=== PATIENT | male | born 1980 | race Hispanic/Latino ===

== ENCOUNTER 2019-06-21 09:58 | Emergency (ER) | payer MEDICAID ==
[2019-06-21 10:38] LABS: BASOPHILS % (AUTO) 0.9 % (0.0-5.0); HEMATOCRIT 45.6 % (42-54); LYMPHOCYTES % (AUTO) 21.9 % (21.0-51.0); MEAN CORPUSCULAR HEMOGLOBIN 31.1 pg (27.0-33.0); MEAN CORPUSCULAR HGB CONC 34.6 g/dL (32.0-36.0); MEAN CORPUSCULAR VOLUME 89.8 fL (79-99); MONOCYTES % (AUTO) 6.6 % (3.0-13.0); NEUTROPHILS % (AUTO) 68.6 % (40.0-77.0); PLATELET COUNT (AUTO) 258 K/uL (130-400); RED BLOOD CELL COUNT(AUTO) 5.07 MIL/uL (4.50-6.20); RED CELL DISTRIBUTION WIDTH 13.1 % (11.0-15.5); WHITE BLOOD COUNT (AUTO) 6.7 K/uL (4.8-10.8)
[2019-06-21 10:44] LABS: POTASSIUM 4.1 mmol/L (3.5-5.1)
[2019-06-21 10:49] LABS: ALBUMIN 4.3 g/dL (3.5-5.0); BILIRUBIN,TOTAL 0.6 mg/dL (0.2-1.0); TOTAL PROTEIN, SERUM 7.4 g/dL (6.0-8.3)
[2019-06-21] MEDS ORDERED: KETOROLAC TROMETHAMINE 30MG/ML ONE (12:54)
[2019-06-21] MEDS ORDERED: SODIUM CHLORIDE 0.9% 500ML 500 ML IV ONE (12:55)
== END 2019-06-21 15:09 | disposition home or self-care (01) ==
LOC: EDH 09:58
DX: R09.1 Pleurisy (principal); R07.89 Other chest pain; Z72.0 Tobacco use
CPT/HCPCS: 36415; 71045; 80053; 82550; 83690; 84484 ×2; 85025; 85378; 93005 ×2; 96374; 99285; J1885; J7040

== ENCOUNTER 2021-05-13 15:04 | Emergency (ER) | payer MEDICAID ==
[~2021-05-13] VITALS: Ht 165.1 cm; Wt 77.1 kg
[~2021-05-13 15:04] MED LIST: DILT180C89 PO
[2021-05-13 15:06] VITALS: BP 110/69
[2021-05-13 15:25] LABS: EOSINOPHILS % (AUTO) 1.5 % (0.0-8.0); LYMPHOCYTES % (AUTO) 17.3 % (21.0-51.0); MEAN CORPUSCULAR HEMOGLOBIN 31.2 pg (27.0-33.0); MEAN CORPUSCULAR HGB CONC 34.5 g/dL (32.0-36.0); MEAN CORPUSCULAR VOLUME 90.4 fL (79-99); MONOCYTES % (AUTO) 7.9 % (3.0-13.0); NEUTROPHILS % (AUTO) 71.7 % (40.0-77.0); PLATELET COUNT (AUTO) 350 K/uL (130-400); RED BLOOD CELL COUNT(AUTO) 5.86 MIL/uL (4.50-6.20); RED CELL DISTRIBUTION WIDTH 12.1 % (11.0-15.5); WHITE BLOOD COUNT (AUTO) 10.8 K/uL (4.8-10.8)
[2021-05-13 15:37] LABS: CREATININE 1.5 mg/dL (0.5-1.5); POTASSIUM 3.6 mmol/L (3.5-5.1)
[2021-05-13 15:43] LABS: ALBUMIN 4.9 g/dL (3.5-5.0); BILIRUBIN,TOTAL 0.7 mg/dL (0.2-1.0)
[2021-05-13 16:35] VITALS: BP 125/79
[2021-05-13 16:40] VITALS: BP 128/89
[2021-05-13 16:45] VITALS: BP 115/77
[2021-05-13] MEDS ORDERED: ACETAMINOPHEN 500 MG TABLET PO ONE (17:00)
[2021-05-13] MEDS ORDERED: NACL 0.9% 1000ML 1,000 ML IV ONE ×3 (17:00→18:25)
[2021-05-13 17:08] LABS: APPEARANCE,URINE Cloudy (CLEAR); BILIRUBIN,URINE Small (NEGATIVE); COLOR,URINE Dark Yellow (YELLOW); GLUCOSE, URINE (UA) Negative (NEGATIVE); KETONES,URINE 15 mg/dL (NEGATIVE); LEUKOCYTE ESTERASE ,URINE Negative (NEGATIVE); NITRATE,URINE Negative (NEGATIVE); OCCULT BLOOD,URINE Negative (NEGATIVE); PROTEIN,URINE POS 1+ mg/dL (NEGATIVE)
[2021-05-13 17:51] LABS: BACTERIA,URINE Few /HPF (None Seen); MUCUS,URINE Many LPF (None Seen); SPERM,URINE Few /HPF (None Seen); SQUAMOUS EPITHELIAL CELL,UR Few /HPF (0-2)
[2021-05-13 19:25] VITALS: BP 128/82
== END 2021-05-13 19:15 | disposition home or self-care (01) ==
LOC: EDH 15:04
DX: T67.5XXA Heat exhaustion, unspecified, initial encounter (principal); R42 Dizziness and giddiness; X58.XXXA Exposure to other specified factors, initial encounter; Y93.89 Activity, other specified; Y92.89 Other specified places as the place of occurrence of the external cause; Y99.8 Other external cause status
CPT/HCPCS: 36415; 80053; 81001; 85025; 96360; 99283; J7030

== ENCOUNTER 2023-02-07 08:54 | Emergency (ER) | payer MEDICAID ==
[~2023-02-07] VITALS: Ht 165.1 cm; Wt 79.4 kg
[2023-02-07 08:59] VITALS: BP 131/90
[2023-02-07] MEDS ORDERED: CYCL10TA16 PO (09:52)
[2023-02-07] MEDS ORDERED: NAPR500T6 PO (09:52)
[2023-02-07] MEDS ORDERED: KETOROLAC 30MG VIAL (30MG/ML) ONE (09:57)
[2023-02-07] MEDS ORDERED: DIAZEPAM 5 MG TABLET ONE (09:58)
[2023-02-07] MEDS ORDERED: KETOROLAC 30MG VIAL (30MG/ML) IM ONE (10:00)
[2023-02-07] MEDS ORDERED: DIAZEPAM 5 MG TABLET PO ONE (10:00)
== END 2023-02-07 10:37 | disposition home or self-care (01) ==
LOC: EDH 08:54
DX: S39.012A Strain of muscle, fascia and tendon of lower back, initial encounter (principal); Z79.899 Other long term (current) drug therapy; X58.XXXA Exposure to other specified factors, initial encounter; Y93.89 Activity, other specified; Y92.89 Other specified places as the place of occurrence of the external cause; Y99.8 Other external cause status
CPT/HCPCS: 99283; 96372; J1885

== ENCOUNTER 2023-09-10 12:57 | Observation (INO) | payer MEDICAID ==
[~2023-09-10] VITALS: Ht 165.1 cm; Wt 99.8 kg
[2023-09-10] VITALS (23 sets, daily range): BP systolic 103–131; BP diastolic 59–84; PULSE 77–97; RESP 16–17; O2SAT 97
[~2023-09-10 12:57] MED LIST changes: +CYCL10TA16 PO; +NAPR500T6 PO
[2023-09-10 16:11] LABS: MEAN CORPUSCULAR HEMOGLOBIN 30.7 pg (27.0-33.0); MEAN CORPUSCULAR HGB CONC 34.3 g/dL (32.0-36.0); MEAN CORPUSCULAR VOLUME 89.5 fL (79-99); PLATELET COUNT (AUTO) 312 K/uL (130-400); RED BLOOD CELL COUNT(AUTO) 5.14 MIL/uL (4.50-6.20); RED CELL DISTRIBUTION WIDTH 11.9 % (11.0-15.5); WHITE BLOOD COUNT (AUTO) 10.8 K/uL (4.8-10.8)
[2023-09-10] MEDS ORDERED: PROPOFOL 10 MG/ML 20ML VIAL IV ONE ×2 (16:21→17:35)
[2023-09-10] MEDS ORDERED: MIDAZOLAM HCL 1 MG/ML 2ML VIAL ONE (16:21)
[2023-09-10 16:22] LABS: INR < 0.93 (0.85-1.15); PROTHROMBIN TIME 10.6 SEC (9.6-11.6)
[2023-09-10] MEDS ORDERED: FENTANYL CITRATE PF 50 MCG/1 ML 2ML VIAL ONE ×3 (16:22→17:31)
[2023-09-10 16:26] LABS: ALBUMIN 4.3 g/dL (3.5-5.0); BILIRUBIN,TOTAL 0.5 mg/dL (0.2-1.0); TOTAL PROTEIN, SERUM 7.6 g/dL (6.0-8.3)
[2023-09-10 16:28] LABS: BAND NEUTROPHILS % (MANUAL) 1 % (0-2); EOSINOPHILS % (MANUAL) 1 % (1-6); LYMPHOCYTES % (MANUAL) 19 % (22-44); MAN.DIFF COMMENT-IMPRESSION MANUAL DIFFERENTIAL; MONOCYTES % (MANUAL) 9 % (2-9); PLATELET MORPHOLOGY COMMENT ADEQUATE; SEGMENTED NEUTROPHILS % 70 % (40-70); TOTAL CELLS COUNTED 100; WBC MORPHOLOGY CONSISTENT W/DIFF
[2023-09-10] MEDS ORDERED: SUCCINYLCHOLINE 200MG/10ML SYR ONE (16:33)
[2023-09-10] MEDS ORDERED: ROCURONIUM 10MG/1ML SYR 10 MG/ML ML ONE ×2 (16:33→17:00)
[2023-09-10] MEDS ORDERED: ONDANSETRON 4MG INJ ONE (16:52)
[2023-09-10] MEDS: 0.9%NACL 1000ML 1,000 ML IV SCH (17:00)
[2023-09-10] MEDS ORDERED: DIPH,PERTUSS(ACELL),TET VAC/PF 0.5 ML VIAL IM ONE (17:00)
[2023-09-10] MEDS ORDERED: CEFAZOLIN SODIUM 2 GM VIAL IVPB SCH (17:00)
[2023-09-10] MEDS ORDERED: VANCOMYCIN 1G VIAL IVPB ONE (17:15)
[2023-09-10] MEDS ORDERED: VANCOMYCIN 1G/250ML KIT 250 ML IV ONE (17:23)
[2023-09-10] MEDS ORDERED: DEXAMETHASONE SOD PHOSPHATE 10MG/ML 1ML VIAL ONE (17:28)
[2023-09-10] MEDS ORDERED: GLYCOPYRROLATE 1 MG/5 ML SYRINGE ONE (17:33)
[2023-09-10] MEDS ORDERED: NEOSTIGMINE 5MG/5ML SYR IV ONE (17:33)
[2023-09-10] MEDS ORDERED: LORAZEPAM 2 MG/ML 1 ML VIAL IVP PRN (19:00)
[2023-09-10] MEDS ORDERED: ONDANSETRON 4MG INJ IVP PRN (19:00)
[2023-09-10] MEDS ORDERED: ACETAMINOPHEN 500 MG TABLET PO PRN (19:00)
[2023-09-10] MEDS ORDERED: KETOROLAC 15MG/ML VIAL (15MG/ML) IM PRN (19:00)
[2023-09-10] MEDS ORDERED: CHLORDIAZEPOXIDE HCL 25 MG CAP PO PRN (19:00)
[2023-09-10] MEDS ORDERED: FOLIC ACID 5 MG/ML VIAL IV SCH (19:00)
[2023-09-10] MEDS ORDERED: MORPHINE 2 MG SYG IVP PRN (19:00)
[2023-09-10] MEDS ORDERED: PANTOPRAZOLE 40 MG/VIAL IVP SCH (19:00)
[2023-09-10] MEDS ORDERED: PHARMACY COMMUNICATION MISC PRN (19:00)
[2023-09-10] MEDS ORDERED: THIAMINE HCL 100 MG/ML 2ML VIAL IVP SCH (19:00)
[2023-09-11] VITALS: BP 104/62; PULSE 95; RESP 16
[2023-09-11] MEDS ORDERED: PHARMACY COMMUNICATION MISC SCH
[2023-09-11 01:00] VITALS: BP 104/64; PULSE 93; RESP 16
[2023-09-11 01:44] LABS: AMPHET/METH SCREEN,URINE NEGATIVE (NEGATIVE); BARBITURATE SCREEN, URINE NEGATIVE (NEGATIVE); BENZODIAZEPINES SCREEN,URINE POSITIVE (NEGATIVE); CANNABINOID SCREEN,URINE NEGATIVE (NEGATIVE); COCAINE SCREEN,URINE POSITIVE (NEGATIVE); OPIATE SCREEN,URINE NEGATIVE (NEGATIVE); PHENCYCLIDINE SCREEN,URINE NEGATIVE (NEGATIVE)
[2023-09-11] MEDS: 0.9%NACL 1000ML 1,000 ML IV SCH ×2 (02:08→13:00)
[2023-09-11] MEDS: CEFAZOLIN SODIUM 2 GM VIAL IVPB SCH ×2 (03:31→13:18)
[2023-09-11 04:00] VITALS: BP 106/69; PULSE 90; RESP 16
[2023-09-11] MEDS ORDERED: VANCOMYCIN KIT 1 GM/250 ML IV.KIT IV ONE (04:00)
[2023-09-11 04:45] LABS: BASOPHILS # (AUTO) 0.02 K/uL (0.00-0.20); BASOPHILS % (AUTO) 0.2 % (0.0-5.0); HEMATOCRIT 43.6 % (42-54); IMMATURE GRANULOCYTE ABSOLUTE 0.11 K/uL (0-1); LYMPHOCYTES # (AUTO) 0.7 K/uL (1.0-4.8); LYMPHOCYTES % (AUTO) 6.5 % (21.0-51.0); MEAN CORPUSCULAR HEMOGLOBIN 31.2 pg (27.0-33.0); MEAN CORPUSCULAR HGB CONC 34.4 g/dL (32.0-36.0); MEAN CORPUSCULAR VOLUME 90.6 fL (79-99); MONOCYTES # (AUTO) 0.3 K/uL (0.1-1.0); MONOCYTES % (AUTO) 2.9 % (3.0-13.0); NEUTROPHILS # (AUTO) 9.5 K/uL (1.8-7.7); NEUTROPHILS % (AUTO) 89.4 % (40.0-77.0); PLATELET COUNT (AUTO) 320 K/uL (130-400); RED BLOOD CELL COUNT(AUTO) 4.81 MIL/uL (4.50-6.20); RED CELL DISTRIBUTION WIDTH 12.1 % (11.0-15.5); WHITE BLOOD COUNT (AUTO) 10.7 K/uL (4.8-10.8)
[2023-09-11 04:55] LABS: CREATININE 1.2 mg/dL (0.5-1.5); POTASSIUM 4.4 mmol/L (3.5-5.1)
[2023-09-11 07:57] VITALS: BP 116/76; PULSE 108; RESP 20
[2023-09-11 08:42] LABS: HEMOGLOBIN A1C 5.6 % (4.0-6.0)
[2023-09-11] MEDS ORDERED: FOLIC ACID 5 MG/ML VIAL IV SCH (09:00)
[2023-09-11 11:58] VITALS: BP 100/60; PULSE 87; RESP 20
[2023-09-11] MEDS ORDERED: CEPH500B PO (14:40)
[2023-09-11 15:35] VITALS: BP 105/61; PULSE 85; RESP 20
== END 2023-09-11 17:00 | disposition home or self-care (01) ==
LOC: EDH 12:57 → EDHIP 16:43 → INTOOBSV 16:43 → 4CH 19:00
PROVIDERS: ADMIT Internal Medicine; ATTEND Internal Medicine
DX: S71.112A Laceration without foreign body, left thigh, initial encounter (principal); E66.9 Obesity, unspecified; F17.210 Nicotine dependence, cigarettes, uncomplicated; Z68.36 Body mass index [BMI] 36.0-36.9, adult; Z79.899 Other long term (current) drug therapy; W45.8XXA Other foreign body or object entering through skin, initial encounter; Y93.89 Activity, other specified; Y92.89 Other specified places as the place of occurrence of the external cause; Y99.8 Other external cause status
CPT/HCPCS: 20103; 96365; 96375 ×2; 99284; 80053; 85025 ×2; 85610; 85730; 36415 ×2; 90715; 73562; 73590; 90471; 96366; 83036; 84443; 80048; 80305; 97161; 97116; 97530 ×2; J7120; A4606; J3370 ×2; J3010 ×3; J0330; J3490 ×4; J1100; J2710; J2250; J3411; J2405; S0164; J0690 ×3; A4649; A6450; G0378 ×2; C9113; J2704; G8980-CH; G8983-CH

== ENCOUNTER 2023-10-17 10:25 | Emergency (ER) | payer MEDICAID, OTHER ==
[~2023-10-17] VITALS: Ht 165.1 cm; Wt 79.4 kg
[~2023-10-17 10:25] MED LIST changes: +CEPH500B PO; -CYCL10TA16 PO; -DILT180C89 PO; -NAPR500T6 PO
[2023-10-17 11:38] VITALS: BP 128/74; PULSE 58; RESP 16; O2SAT 98
== END 2023-10-17 11:40 | disposition home or self-care (01) ==
LOC: EDH 10:25
DX: M25.562 Pain in left knee (principal); Z48.02 Encounter for removal of sutures; Z98.890 Other specified postprocedural states; Z88.8 Allergy status to other drugs, medicaments and biological substances
CPT/HCPCS: 99281

== ENCOUNTER 2023-10-18 14:42 | Emergency (ER) | payer OTHER ==
[~2023-10-18] VITALS: Ht 165.1 cm; Wt 86.2 kg
[2023-10-18 14:50] VITALS: BP 133/78; PULSE 92; RESP 16; O2SAT 99
== END 2023-10-18 15:20 | disposition home or self-care (01) ==
LOC: EDH 14:42
DX: Z48.02 Encounter for removal of sutures (principal); Z88.5 Allergy status to narcotic agent

== ENCOUNTER 2024-12-25 18:59 | Emergency (ER) | payer SELFPAY ==
[~2024-12-25] VITALS: Ht 165.1 cm; Wt 94.3 kg
[2024-12-25 20:20] LABS: RAPID GROUP A STREP negative (NEGATIVE)
[2024-12-25 20:22] LABS: SARS-CoV-2, RNA, NAAT NEGATIVE SARS CoV-2 (NEGATIVE)
[2024-12-25 20:29] LABS: INFLUENZA TYPE B Negative For Type B (NEGATIVE)
[2024-12-25] MEDS ORDERED: ketOROlac 30MG VIAL (30MG/ML) IM ONE (20:30)
[2024-12-25 20:37] LABS: BASOPHILS # (AUTO) 0.05 K/uL (0.00-0.20); BASOPHILS % (AUTO) 0.5 % (0.0-5.0); EOSINOPHILS # (AUTO) 0.01 K/uL (0.00-0.70); EOSINOPHILS % (AUTO) 0.1 % (0.0-8.0); HEMATOCRIT 44.6 % (42-54); LYMPHOCYTES # (AUTO) 0.4 K/uL (1.0-4.8); LYMPHOCYTES % (AUTO) 3.5 % (21.0-51.0); MEAN CORPUSCULAR HEMOGLOBIN 31.2 pg (27.0-33.0); MEAN CORPUSCULAR HGB CONC 33.9 g/dL (32.0-36.0); MEAN CORPUSCULAR VOLUME 92.1 fL (79-99); MONOCYTES # (AUTO) 0.6 K/uL (0.1-1.0); MONOCYTES % (AUTO) 5.5 % (3.0-13.0); NEUTROPHILS # (AUTO) 9.5 K/uL (1.8-7.7); NEUTROPHILS % (AUTO) 89.5 % (40.0-77.0); PLATELET COUNT (AUTO) 219 K/uL (130-400); RED BLOOD CELL COUNT(AUTO) 4.84 MIL/uL (4.50-6.20); RED CELL DISTRIBUTION WIDTH 12.3 % (11.0-15.5); WHITE BLOOD COUNT (AUTO) 10.6 K/uL (4.8-10.8)
[2024-12-25 20:49] LABS: INFLUENZA TYPE A Positive For Type A (NEGATIVE)
[2024-12-25 20:56] LABS: POTASSIUM 4.3 mmol/L (3.5-5.1)
[2024-12-25] MEDS ORDERED: OSEL75 PO (21:13)
[2024-12-25] MEDS ORDERED: AZIT250T9 PO (21:13)
[2024-12-25] MEDS ORDERED: METH4TAB3 PO (21:13)
--- NOTE | 2024-12-25 21:13 | ERN ---
General Chief Complaint: Cough Stated Complaint: DIZZY, COUGH, SWEATING Time Seen by MD: 19:14 Time Seen by Midlevel: 19:14 Source: patient History of Present Illness Initial Comments 44-year-old male with no significant past medical history presenting to the emergency department with cough, congestion, and fever that started yesterday and progressively worsened today. Today he now reports episodes of dizziness. Denies any other symptoms at this time. He specifically denies any shortness of breath or chest pain. Allergies: Coded Allergies: iodine (Unverified Allergy, Unknown, 10/17/23) TOPICAL Home Meds Active Scripts Oseltamivir Phosphate (Tamiflu) 75 Mg Cap, 75 MG PO BID for 5 Days, #10 CAP Prov:CLARY MALAGON 12/25/24 Azithromycin (Azithromycin) 250 Mg Tablet, 1 TAB PO AD for 5 Days, #6 TAB 0 Refills 2 the first day followed by 1 for days 2-5 Prov:CLARY MALAGON 12/25/24 Methylprednisolone (Medrol) 4 Mg Tab.ds.pk, 1 TAB PO AD for 6 Days, #21 TAB 0 Refills 6 on day 1 then reduce by one tablet daily until gone Prov:CLARY MALAGON 12/25/24 Cephalexin Monohydrate (Keflex) 500 Mg Cap, 500 MG PO Q12H for 2 Days, #4 CAP 0 Refills Prov:MARTA AVILA MD 09/11/23 Past Medical History Past Medical History: No Pertinent History Past Surgical History: None Surgical History Other: LEFT KNEE Family History Family History: Negative Social History Social History: Negative ROS Dictation CONSTITUTIONAL: Negative except for HPI HEAD/FACE: Negative except for HPI EENT: Negative except for HPI RESPIRATORY: Negative except for HPI GASTROINTESTINAL/ABDOMINAL: Negative except for HPI GENITOURINARY: Negative except for HPI MUSCULOSKELETAL: Negative except for HPI INTEGUMENTARY: Negative except for HPI NEUROLOGICAL/PSYCH: Negative except for HPI HEMATOLOGIC/LYMPHATIC: Negative except for HPI All Systems Negative, Except as noted above. 13 point review of systems assessed and all negative except for above. Physical Exam Physical Exam Dictation Vital Signs reviewed General Appearance: Alert, oriented x 3, no acute distress, well developed, nourished. Head and Face: non-traumatic. Eyes: PERRL, pink conjunctivas, eyelid no trauma, anterior chamber with arcus senilis. Ears: Pinnas intact and no signs of trauma or erythema ear canals clear and no discharge TM no erythema Nose: No discharge, no bleeding. Oropharynx: Mouth normal, tongue pink, pharynx clear,no erythema, tonsils no exudates, no abscesses noted, mucous membrane moist Neck: Supple, non-tender, no thyromegaly, no masses, no JVD, no bruits Breast:Deferred Chest:No tenderness, no crepitus, no paradoxical movement, no retractions Lungs:Clear, well-ventilated, symmetric, no rales, no wheezing, no rhonchi, no stridor, good breath sounds bilaterally Heart: Regular rate, regular rhythm, no murmur, no gallops Vascular: no peripheral edema, Abdomen: Soft, positive bowel sounds, nondistended, no guarding, nontender, no rebound, no masses no hepatomegaly, no splenomegaly, no Zaldivar's sign, no hernias. Rectal: Deferred Genital: Deferred Neurological: Normal speech, motor function intact, sensory function intact Musculoskeletal: Neck nontender, full range of motion, back nontender, full range of motion, Extremities: nontender, full range of motion Skin: Color pink, dry, no turgor, no rash, no lacerations, no abrasions, no contusions. Lymphatic: Deferred Results Laboratory and Microbiology Lab and Micro Result Laboratory Tests Test 12/25/24 20:03 12/25/24 20:20 Influenza Type A Antigen Positive For Type A Influenza Type B Antigen Negative For Type B SARS-CoV-2, RNA, NAAT NEGATIVE SARS CoV-2 Group A Streptococcus Rapid negative (NEGATIVE) White Blood Count 10.6 K/uL (4.8-10.8) Red Blood Count 4.84 MIL/uL (4.50-6.20) Hemoglobin 15.1 g/dL (14.0-18.0) Hematocrit 44.6 % (42-54) Mean Corpuscular Volume 92.1 fL (79-99) Mean Corpuscular Hemoglobin 31.2 pg (27.0-33.0) Mean Corpuscular Hemoglobin Concent 33.9 g/dL (32.0-36.0) Red Cell Distribution Width 12.3 % (11.0-15.5) Platelet Count 219 K/uL (130-400) Mean Platelet Volume 9.1 fL (7.5-10.5) Immature Granulocyte % (Auto) 0.9 % (0-1) Neutrophils (%) (Auto) 89.5 % (40.0-77.0) H Lymphocytes (%) (Auto) 3.5 % (21.0-51.0) L Monocytes (%) (Auto) 5.5 % (3.0-13.0) Eosinophils (%) (Auto) 0.1 % (0.0-8.0) Basophils (%) (Auto) 0.5 % (0.0-5.0) Neutrophils # (Auto) 9.5 K/uL (1.8-7.7) H Lymphocytes # (Auto) 0.4 K/uL (1.0-4.8) L Monocytes # (Auto) 0.6 K/uL (0.1-1.0) Eosinophils # (Auto) 0.01 K/uL (0.00-0.70) Basophils # (Auto) 0.05 K/uL (0.00-0.20) Absolute Immature Granulocyte (auto 0.10 K/uL (0-1) Nucleated Red Blood Cells 0.0 % (0.0-0.19) White Cell Morphology Comment See comments Sodium Level 140 mmol/L (136-145) Potassium Level 4.3 mmol/L (3.5-5.1) Chloride Level 105 mmol/L (101-111) Carbon Dioxide Level 32 mmol/L (21-32) Blood Urea Nitrogen 14 mg/dL (7-18) Creatinine 1.0 mg/dL (0.5-1.3) Glomerular Filtration Rate Calc 94 mL/min (>90) Random Glucose 122 mg/dL (70-105) H Total Calcium 9.2 mg/dL (8.5-10.1) Labs Reviewed?: Yes MDM MDM: Differential diagnosis: Pneumonia, pneumonitis, viral illness, upper respiratory infection There are no social concerns with this patient. Prescription drug management Prescriptions will include: Tamiflu, azithromycin, Medrol pack Medical management and examination interpretation discussions were had by me with other qualified healthcare professionals as indicated for the patient's care. ED Course Orders Procedure Category Date Status Time Cbc With Differential LAB 12/25/24 Complete 19:14 Basic Metabolic Panel LAB 12/25/24 Complete 19:14 Covid Rna Naat LAB 12/25/24 Complete 19:14 Influenza Type A & B, LAB 12/25/24 Complete Rapid 19:14 Rapid (Group A Strep) LAB 12/25/24 Complete 19:14 Ketorolac PHA 12/25/24 Complete Tromethamine 30mg/Ml 20:30 Acetaminophen 500mg PHA 12/25/24 Complete Tab (Tylenol 500mg T 20:30 Chest 1vw RAD 12/25/24 Resulted 20:12 Dexamethasone 4mg/Ml PHA 12/25/24 In Process 1ml Vial (Dexametha 21:30 Current Medications Medications (Trade) Dose Ordered Sig/Paulina Route PRN Reason Start Time Stop Time Status Last Admin Dose Admin Acetaminophen (TYLenol 500MG TAB) 1,000 mg ONCE ONCE PO 12/25/24 20:30 12/25/24 20:31 DC Dexamethasone Sodium Phosphate (dexaMETHasone 4MG/ML 1ML VIAL) 6 mg ONCE ONCE IM 12/25/24 21:30 12/25/24 21:31 Ketorolac Tromethamine (toRADol) 30 mg ONCE ONCE IM 12/25/24 20:30 12/25/24 21:13 DC Vital Signs Date Time Temp Pulse Resp B/P (MAP) Pulse Ox O2 Delivery O2 Flow Rate FiO2 12/25/24 20:01 101.7 106 20 118/69 96 [address] [id number] IMAGING REPORT Signed PATIENT: GALINDO SKY MR#: [id number] : 1980 SEX: M AGE: 44 LOCATION: ED ORDER 12 STATUS: REG ER REPORT#: [id number] SERVICE 11 REASON: sob, cough ORDERING PHYSICIAN: CLARY MALAGON PROCEDURE: CXR1VW - CHEST 1VW CHEST 1VW REASON: sob, cough COMPARISON: 12/29/2019 FINDINGS: There is infiltrate in the left lower lobe consistent with pneumonia. Lungs are otherwise clear. Heart, mediastinum and bony thorax appear unremarkable. IMPRESSION: 1. Left lower lobe pneumonia. DICTATED BY: SPENSER DO MD DATE: 12/25/242117 ELECTRONICALLY SIGNED BY: SEPNSER DO MD DATE: 12/25/242121 DX & DISP Disposition: Discharge Departure Impression: Primary Impression: Influenza A Additional Impression: Left lower lobe pneumonia Condition: Stable Scripts Oseltamivir Phosphate (Tamiflu) 75 Mg Cap 75 MG PO BID for 5 Days, #10 CAP Prov: CLARY MALAGON 12/25/24 Azithromycin (Azithromycin) 250 Mg Tablet 1 TAB PO AD for 5 Days, #6 TAB 0 Refills 2 the first day followed by 1 for days 2-5 Prov: CLARY MALAGON 12/25/24 Methylprednisolone (Medrol) 4 Mg Tab.ds.pk 1 TAB PO AD for 6 Days, #21 TAB 0 Refills 6 on day 1 then reduce by one tablet daily until gone Prov: CLARY MALAGON 12/25/24 Additional Instructions: You have tested positive for influenza A. Your blood work today is stable. Your chest x-ray shows some pulmonary congestion which is concerning for an early pneumonia. You were given steroid injection in the ER and will be discharged home on antibiotics and Tamiflu which should help improve your symptoms over the next couple of days. Referrals: SELF,REFERRAL (PCP) Time of Disposition: 21:11 I have reviewed the case, and I agree with, Diagnosis and Plan I performed the substantive portion of the visit. I have reviewed and personally made and approve the management plan that is documented in the note by myself or the NICKI. I acknowledge for responsibility for the patient's management plan. CLARY MALAGON Dec 25, 2024 21:13
--- NOTE | 2024-12-25 21:22 | HMCIMG ---
CHEST 1VW REASON: sob, cough COMPARISON: 12/29/2019 FINDINGS: There is infiltrate in the left lower lobe consistent with pneumonia. Lungs are otherwise clear. Heart, mediastinum and bony thorax appear unremarkable. IMPRESSION: 1. Left lower lobe pneumonia.
[2024-12-25] MEDS: acetaMINOPHEN 500 MG TABLET PO ONE (21:42)
[2024-12-25] MEDS: dexaMETHasone SOD PHOSPHATE 4 MG/ML 1ML VIAL IM ONE (21:43)
[2024-12-25] MEDS: cefTRIAXone 1G VIAL IM ONE (21:44)
[2024-12-25 22:10] VITALS: BP 132/79; PULSE 98; RESP 18; TEMP 100; O2SAT 96
== END 2024-12-25 22:10 | disposition home or self-care (01) ==
LOC: EDH 18:59
DX: J10.00 Influenza due to other identified influenza virus with unspecified type of pneumonia (principal); Z20.822 Contact with and (suspected) exposure to COVID-19; Z79.899 Other long term (current) drug therapy; Z88.8 Allergy status to other drugs, medicaments and biological substances; Z91.041 Radiographic dye allergy status
CPT/HCPCS: 99284; 71045; 87635; 80048; 85025; 87880; 87804 ×2; 36415; 96372 ×2; J1100; J0696